=== PATIENT | male | born 1990 | race Caucasian/White ===

== ENCOUNTER 2016-11-29 18:42 | Emergency (ER) | payer OTHER ==
[~2016-11-29] VITALS: Ht 172.7 cm; Wt 102.0 kg
[2016-11-29 18:52] VITALS: BP 129/68
== END 2016-11-29 20:20 | disposition home or self-care (01) ==
LOC: ED 18:42
DX: T15.02XA Foreign body in cornea, left eye, initial encounter (principal); X58.XXXA Exposure to other specified factors, initial encounter; Y93.89 Activity, other specified; Y92.89 Other specified places as the place of occurrence of the external cause; Y99.8 Other external cause status

== ENCOUNTER 2017-03-09 21:13 | Emergency (ER) | payer OTHER ==
[~2017-03-09] VITALS: Ht 175.3 cm; Wt 112.0 kg
[2017-03-09 23:16] VITALS: BP 137/87
== END 2017-03-10 01:44 | disposition home or self-care (01) ==
LOC: ED 21:13
DX: M54.5 Low back pain (principal)
CPT/HCPCS: J1885

== ENCOUNTER 2018-12-13 23:03 | Emergency (ER) | payer OTHER ==
[~2018-12-13] VITALS: Ht 172.7 cm; Wt 106.7 kg
[2018-12-13 23:23] VITALS: Ht 172.7 cm; Wt 106.7 kg
[2018-12-14 01:44] VITALS: BP 142/87
== END 2018-12-14 01:45 | disposition home or self-care (01) ==
LOC: ED 23:03
DX: S39.012A Strain of muscle, fascia and tendon of lower back, initial encounter (principal); S43.401A Unspecified sprain of right shoulder joint, initial encounter; Z98.890 Other specified postprocedural states; V43.52XA Car driver injured in collision with other type car in traffic accident, initial encounter; Y93.I9 Activity, other involving external motion; Y92.488 Other paved roadways as the place of occurrence of the external cause; Y99.8 Other external cause status